=== PATIENT | female | born 1990 | race American Indian/Alaskan Native ===

== ENCOUNTER 2016-07-24 19:56 | Emergency (ER) | payer MEDICAID, OTHER ==
[2016-07-24 20:31] VITALS: BP 156/70
--- NOTE | 2016-07-24 20:38 | EDM.PDOC ---
ED HPI Skin/Rash - General Chief Complaint: Skin Complaint Stated Complaint: LEFT FOOT INFECTION [id number] Time Seen by Provider: 07/24/16 20:40 Source: Reports: Patient History Limitations: Reports: No limitations - History of Present Illness INITIAL COMMENTS - FREE TEXT/NARRATIVE: infected left great toe x 2 weeks, completed course of keflex without any change. Has not followed up in clinic. Notes possible Last LMP 06/11 Timing: Reports: still present Location, Skin: Reports: lower extremity, left Quality: Reports: Throbbing Severity: moderate Associated Symptoms: Reports: no other symptoms - Related Data Allergies Allergy/AdvReac Type Severity Reaction Status Date / Time No Known Allergies Allergy Verified 04/11/16 14:04 Home Meds: Ambulatory Orders Medication Instructions Recorded Confirmed . 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 Musculoskeletal History: Reports: None Neurological History: Reports: None Psychiatric History: Reports: None Endocrine/Metabolic History: Reports: None Hematologic History: Reports: None Immunologic History: Reports: None Oncologic (Cancer) History: Reports: None Dermatologic History: Reports: None - Infectious Disease History Infectious Disease History: Reports: Chicken pox - Past Surgical History Head Surgeries/Procedures: Reports: None Other Musculoskeletal Surgeries/Procedures:: Back surgeries x 3 Social & Family History - Family History Family Medical History: Noncontributory - Tobacco Use Smoking Status *Q: Never Smoker Second Hand Smoke Exposure: No - Caffeine Use Caffeine Use: Reports: None - Alcohol Use Days Per Week of Alcohol Use: 1 Number of Drinks Per Day: 1 Total Drinks Per Week: 1 - Recreational Drug Use Recreational Drug Use: No - Living Situation & Occupation Living situation: Reports: Occupation: employed ED ROS GENERAL - Review of Systems Review Of Systems: ROS reveals no pertinent complaints other than HPI. ED EXAM, SKIN/RASH Exam: See Below Exam Limited By: No limitations General Appearance: alert, no apparent distress Ears: normal external exam Throat/Mouth: Normal inspection Head: atraumatic Neck: normal inspection Respiratory/Chest: no respiratory distress Cardiovascular: normal peripheral pulses, regular rate, rhythm Extremities: increased warmth, redness, other (Left great toe ingrown toenail medial edge scant serous drainage, swelling redness, tender) Neurological: alert, oriented Skin: Warm, Other (left distal medial great toe swollen upper nail edge scant bloody drainage. ) Course - Vital Signs Last Recorded V/S: Last Vital Signs Temp 98.3 F 07/24/16 20:20 Pulse 89 07/24/16 20:20 Resp 14 07/24/16 20:20 BP 156/70 H 07/24/16 20:20 Pulse Ox 98 07/24/16 20:20 - Orders/Labs/Meds Meds: Medications Discontinued Medications Generic Name Dose Route Start Last Admin Trade Name Freq PRN Reason Stop Dose Admin Amoxicillin/Clavulanate Potassium 1 tab 07/24/16 20:40 07/24/16 20:52 Augmentin 875 Mg/125 Mg PO 07/24/16 20:41 1 tab ONETIME ONE Administration Amoxicillin/Clavulanate Potassium Confirm 07/24/16 21:08 Augmentin 875 Mg/125 Mg Administered 07/24/16 21:09 Dose 1 tab .ROUTE .STK-MED ONE Mupirocin Confirm 07/24/16 21:08 Bactroban Oint Administered 07/24/16 21:09 Dose 22 gm .ROUTE .STK-MED ONE Departure - Departure Time of Disposition: 20:47 Disposition: Home, Self-Care 01 Condition: good Clinical Impression: Paronychia of great toe, left Instructions: Ingrown Toenail Forms: ED Department Discharge Additional Instructions: augmentin 875 one twice daily for one week mupirocin ointment to toe three times daily keep area covered if draining broad toe shoe follow up in clinic on tuesday
[2016-07-24] MEDS ORDERED: Amoxicillin/Clavulanate K 875-125 MG Tab PO ONE ×2 (20:40→21:08)
[2016-07-24] MEDS ORDERED: Amoxicillin/Clavulanate K 875-125 MG Tab ONE (21:08)
[2016-07-24] MEDS ORDERED: Mupirocin Oint 22 GM Tube TOP ONE (21:08)
[2016-07-24] MEDS ORDERED: Mupirocin Oint 22 GM Tube ONE (21:08)
== END 2016-07-24 21:14 | disposition home or self-care (01) ==
LOC: DL.ED 19:56
DX: L03.032 Cellulitis of left toe (principal)
CPT/HCPCS: 99283; A9270

== ENCOUNTER 2016-10-08 22:03 | Emergency (ER) | payer MEDICAID, OTHER ==
[2016-10-09] MEDS ORDERED: Cyclobenzaprine 10 MG Tab PO ONE (03:40)
[2016-10-09] MEDS ORDERED: Acetaminophen/oxyCODONE 325-5 MG Tab PO ONE (03:40)
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
[2016-10-09 04:04] VITALS: BP 154/80
== END 2016-10-09 04:06 | disposition home or self-care (01) ==
LOC: DL.ED 22:03
DX: M62.838 Other muscle spasm (principal); V94.9XXA Unspecified water transport accident, initial encounter
CPT/HCPCS: 70450; 72125; 99284; A9270

== ENCOUNTER 2017-02-24 23:15 | Emergency (ER) | payer MEDICAID, OTHER ==
[2017-02-24 23:23] VITALS: BP 142/77
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
[2017-02-25] MEDS ORDERED: Ketorolac 30 MG/ML SDV IM ONE (00:11)
[2017-02-25] MEDS ORDERED: Acetaminophen/HYDROcodone 325-10 MG Tab PO ONE (01:01)
== END 2017-02-25 01:10 | disposition home or self-care (01) ==
LOC: DL.ED 23:15
DX: S30.0XXA Contusion of lower back and pelvis, initial encounter (principal); Z98.890 Other specified postprocedural states; X58.XXXA Exposure to other specified factors, initial encounter; W00.0XXA Fall on same level due to ice and snow, initial encounter
CPT/HCPCS: 36415; 72100; 84703; 96372; 99283; A9270; J1885

== ENCOUNTER 2017-11-22 21:42 | Emergency (ER) | payer MEDICAID, OTHER ==
[2017-11-23] MEDS ORDERED: Lidocaine 1% 30 ML SDV INJECT ONE (00:27)
[2017-11-23] MEDS ORDERED: Sulfamethoxazole/Trimethoprim 800-160 MG Tab PO ONE (00:27)
[2017-11-23] MEDS ORDERED: Bacitracin Oint 1 GM U/D Packet TOP ONE (00:39)
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
[2017-11-23 00:47] VITALS: BP 133/75
== END 2017-11-23 00:49 | disposition home or self-care (01) ==
LOC: DL.ED 21:42
DX: L02.415 Cutaneous abscess of right lower limb (principal)
CPT/HCPCS: 10060; 87070; 87077; 87186; 99283; A9270

== ENCOUNTER 2018-08-27 12:42 | Emergency (ER) | payer OTHER ==
[2018-08-27 13:56] VITALS: BP 120/67
--- NOTE | 2018-08-27 19:23 | EDM.PDOC ---
Scribed by Sue Mota 08/27/18 192 for Jess Lion NP ED HPI GENERAL MEDICAL PROBLEM - General Chief Complaint: Lower Extremity Injury/Pain Stated Complaint: INJURED LEFT HIP Time Seen by Provider: 08/27/18 13:30 Source of Information: Reports: Patient, RN, RN Notes Reviewed History Limitations: Reports: No Limitations - History of Present Illness INITIAL COMMENTS - FREE TEXT/NARRATIVE: Patient presented to ER with pain in the left hole and injured her left hip while mowing yesterday. She has taken Tylenol and ibuprofen. No LE numbness. No leg or ankle pain Onset Date: 08/26/18 Duration: Constant Location: Reports: Lower Extremity, Left Quality: Reports: Ache Severity: Mild Improves with: Reports: None Worsens with: Reports: None Associated Symptoms: Reports: No Other Symptoms Left Hip Pain Score (Numeric/FACES): 6 - Related Data Allergies Allergy/AdvReac Type Severity Reaction Status Date / Time No Known Allergies Allergy Verified 08/27/18 13:13 Home Meds: Home Meds Topiramate 25 mg PO ASDIRECTED PRN 08/27/18 [History] metFORMIN HCl [Metformin HCl] 500 mg PO BID 08/27/18 [History] Past Medical History - Past Health History Medical/Surgical History: Denies Medical/Surgical History HEENT History: Reports: None Cardiovascular History: Reports: None Respiratory History: Reports: None Gastrointestinal History: Reports: None Genitourinary History: Reports: None 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: Musculoskeletal History: Reports: None Neurological History: Reports: None Psychiatric History: Reports: None Endocrine/Metabolic History: Reports: None Hematologic History: Reports: None Immunologic History: Reports: None Oncologic (Cancer) History: Reports: None Dermatologic History: Reports: None - Infectious Disease History Infectious Disease History: Reports: Chicken Pox - Past Surgical History Female Surgical History: Reports: Section Other Musculoskeletal Surgeries/Procedures:: Back surgeries x 3 Social & Family History - Family History Family Medical History: Noncontributory - Caffeine Use Caffeine Use: Reports: None - Living Situation & Occupation Living situation: Reports: Occupation: Employed Review of Systems - Review of Systems Review Of Systems: ROS reveals no pertinent complaints other than HPI. ED EXAM, GENERAL - Physical Exam Exam: See Below Exam Limited By: No Limitations General Appearance: Alert, WD/WN, No Apparent Distress Neck: Normal Inspection, Supple, Non-Tender, Full Range of Motion Respiratory/Chest: No Respiratory Distress, Lungs Clear, Normal Breath Sounds, No Accessory Muscle Use, Chest Non-Tender Cardiovascular: Normal Peripheral Pulses, Regular Rate, Rhythm, No Edema, No Gallop, No JVD, No Murmur, No Rub GI/Abdominal: Normal Bowel Sounds, Soft, Non-Tender, No Organomegaly, No Distention, No Abnormal Bruit, No Mass Back Exam: Other (No spine pain.) Extremities: Other (left hip and groin pain. No red or edema. ) Skin Exam: Warm, Dry, Intact, Normal Color, No Rash Course - Vital Signs Last Recorded V/S: Last Vital Signs Temp 36.6 C 08/27/18 13:10 Pulse 72 08/27/18 13:10 Resp 16 08/27/18 13:10 BP 120/67 08/27/18 13:10 Pulse Ox 99 08/27/18 13:10 - Orders/Labs/Meds Orders: Active Orders 24 hr Category Date Time Status Hip Min 2V or 3V w Pelvis Lt [CR] Stat Exams 08/27/18 13:52 Taken - Radiology Interpretation Free Text/Narrative:: Left hip x-ray: No acute findings. See rad report. - Re-Assessments/Exams Free Text/Narrative Re-Assessment/Exam: 08/27/18 19:21 Patient left before xray report came available. Notified her at home of her neg xray and to follow with her PCP for possible PT. She was instructed to use heat/ ice ibuprofen/tylenol for pain Departure - Departure Time of Disposition: 17:09 Disposition: Home, Self-Care 01 Condition: Good Clinical Impression: Hip strain - Discharge Information *PRESCRIPTION DRUG MONITORING PROGRAM REVIEWED*: Not Applicable *COPY OF PRESCRIPTION DRUG MONITORING REPORT IN PATIENT MARIA G: Not Applicable Forms: ED Department Discharge Additional Instructions: Patient left before xray report came available. Notified her at home of her neg xray and to follow with her PCP for possible PT. She was instructed to use heat/ ice ibuprofen/tylenol for pain - My Orders Last 24 Hours: My Active Orders 08/27/18 13:52 Hip Min 2V or 3V w Pelvis Lt [CR] Stat - Assessment/Plan Last 24 Hours: My Active Orders 08/27/18 13:52 Hip Min 2V or 3V w Pelvis Lt [CR] Stat I have read and agree with the documentation that has been completed regarding this visit. By signing this record, I attest that the documentation was completed in my physical presence and is an accurate record of the encounter.
== END 2018-08-27 16:45 | disposition home or self-care (01) ==
LOC: DL.ED 12:42
DX: S76.012A Strain of muscle, fascia and tendon of left hip, initial encounter (principal); Z79.84 Long term (current) use of oral hypoglycemic drugs; W27.1XXA Contact with garden tool, initial encounter
CPT/HCPCS: 99283-25

== ENCOUNTER 2018-09-02 23:18 | Emergency (ER) | payer BC, OTHER ==
[2018-09-02] MEDS ORDERED: Doxycycline 100 MG Cap PO ONE (23:19)
[2018-09-02] MEDS ORDERED: Mupirocin Oint 22 GM Tube TOP ONE (23:19)
[2018-09-02 23:30] VITALS: BP 157/86
[2018-09-02] MEDS ORDERED: Doxycycline 100 MG Cap ONE (23:50)
[2018-09-02] MEDS ORDERED: Mupirocin Oint 22 GM Tube ONE (23:50)
--- NOTE | 2018-09-02 23:51 | EDM.PDOC ---
ED HPI GENERAL MEDICAL PROBLEM - General Chief Complaint: Lower Extremity Injury/Pain Stated Complaint: SCRAPE ON LEG INFECTED [id number] Time Seen by Provider: 09/02/18 23:42 Source of Information: Reports: Patient, RN History Limitations: Reports: No Limitations - History of Present Illness INITIAL COMMENTS - FREE TEXT/NARRATIVE: left outer leg red and swollen, >Slid into base Tuesday at softball. Crusting today and tonight noted redness around abrasion, Had been using peroxide to clean. No fever or chills. 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: Musculoskeletal History: Reports: None Other Musculoskeletal History: 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 Neurological History: Reports: None Psychiatric History: Reports: None Endocrine/Metabolic History: Reports: Diabetes, Type II Hematologic History: Reports: None Immunologic History: Reports: None Oncologic (Cancer) History: Reports: None Dermatologic History: Reports: None - Infectious Disease History Infectious Disease History: Reports: Chicken Pox - Past Surgical History Female Surgical History: Reports: Section Other Musculoskeletal Surgeries/Procedures:: Back surgeries x 3 Social & Family History - Family History Family Medical History: Noncontributory - Tobacco Use Smoking Status *Q: Never Smoker - Caffeine Use Caffeine Use: Reports: Tea - Recreational Drug Use Recreational Drug Use: No - Living Situation & Occupation Living situation: Reports: Occupation: Employed Review of Systems - Review of Systems Review Of Systems: ROS reveals no pertinent complaints other than HPI. ED EXAM, GENERAL - Physical Exam Exam: See Below Exam Limited By: No Limitations General Appearance: Alert, Mild Distress Eye Exam: Bilateral Eye: EOMI Ears: Normal External Exam, Normal TMs Nose: Normal Inspection Throat/Mouth: Normal Inspection, Normal Voice Head: Atraumatic Neck: Normal Inspection Respiratory/Chest: No Respiratory Distress, Lungs Clear, Normal Breath Sounds Cardiovascular: Normal Peripheral Pulses, Regular Rate, Rhythm GI/Abdominal: Normal Bowel Sounds, Soft Extremities: Increased Warmth, Redness ([id number] abrasion left lateral lower leg) Skin Exam: Warm, Dry, Erythema, Increased Warmth, Wound/Incision (abrasion left leg) Course - Vital Signs Last Recorded V/S: Last Vital Signs Temp 97.2 F 09/02/18 23:18 Pulse 87 09/02/18 23:18 Resp 18 09/02/18 23:18 BP 157/86 H 09/02/18 23:18 Pulse Ox 99 09/02/18 23:18 Departure - Departure Time of Disposition: 23:51 Disposition: Home, Self-Care 01 Condition: Good Clinical Impression: Cellulitis of lower extremity Qualifiers: Laterality: left Qualified Code(s): L03.116 - Cellulitis of left lower limb Abrasion, leg w/ infection Qualifiers: Encounter type: initial encounter Laterality: left Qualified Code(s): S80.812A - Abrasion, left lower leg, initial encounter; L08.9 - Local infection of the skin and subcutaneous tissue, unspecified - Discharge Information *PRESCRIPTION DRUG MONITORING PROGRAM REVIEWED*: No *COPY OF PRESCRIPTION DRUG MONITORING REPORT IN PATIENT MARIA G: No Instructions: Cellulitis, Adult, [id number] Additional Instructions: wash with soap and water dress with mupirocin twice daily elevate doxycycline 100mg one twice daily for 10 days follow up if increased redness and fever tylenol or ibuprofen, may alternate every 4 hours as needed for discomfort
== END 2018-09-03 00:05 | disposition home or self-care (01) ==
LOC: DL.ED 23:18
DX: S80.812A Abrasion, left lower leg, initial encounter (principal); L03.116 Cellulitis of left lower limb; E11.9 Type 2 diabetes mellitus without complications; Z79.84 Long term (current) use of oral hypoglycemic drugs; W19.XXXA Unspecified fall, initial encounter; Y93.64 Activity, baseball
CPT/HCPCS: 99283; A9270

== ENCOUNTER 2018-09-09 16:49 | Emergency (ER) | payer BC, OTHER ==
[2018-09-09 17:04] VITALS: BP 141/86
[2018-09-09] MEDS ORDERED: fentaNYL 100 MCG/2 ML SDV IVPUSH ONE (17:04)
[2018-09-09] MEDS ORDERED: Clindamycin Phosphate 900 MG in Sodium Chloride 0.9% 100 ML IV ONE (17:04)
[2018-09-09] MEDS ORDERED: Sodium Chloride 0.9% 1,000 ML IV ONE (17:04)
--- NOTE | 2018-09-09 17:08 | EDM.PDOC ---
ED HPI GENERAL MEDICAL PROBLEM - General Chief Complaint: Skin Complaint Stated Complaint: BLOOD CLOT IN LEFT LEG Time Seen by Provider: 09/09/18 17:06 Source of Information: Reports: Patient History Limitations: Reports: No Limitations - History of Present Illness INITIAL COMMENTS - FREE TEXT/NARRATIVE: injured left calf last week saw ER got doxy but started to look worse today with increase pain swelling redness. 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: Musculoskeletal History: Reports: None Other Musculoskeletal History: 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 Neurological History: Reports: None Psychiatric History: Reports: None Endocrine/Metabolic History: Reports: Diabetes, Type II Hematologic History: Reports: None Immunologic History: Reports: None Oncologic (Cancer) History: Reports: None Dermatologic History: Reports: None - Infectious Disease History Infectious Disease History: Reports: Chicken Pox - Past Surgical History Female Surgical History: Reports: Section Other Musculoskeletal Surgeries/Procedures:: Back surgeries x 3 Social & Family History - Family History Family Medical History: Noncontributory - Caffeine Use Caffeine Use: Reports: Tea - Living Situation & Occupation Living situation: Reports: Occupation: Employed ED ROS GENERAL - Review of Systems Review Of Systems: ROS reveals no pertinent complaints other than HPI. ED EXAM, SKIN/RASH Exam: See Below Exam Limited By: No Limitations General Appearance: Alert, WD/WN, Mild Distress, Other (discomfort) Ears: Hearing Grossly Normal Throat/Mouth: Normal Voice, No Airway Compromise Head: Atraumatic Neck: Non-Tender, Full Range of Motion Respiratory/Chest: No Respiratory Distress Cardiovascular: Regular Rate, Rhythm GI/Abdominal: Soft, Non-Tender Extremities: Other (left calf infected abrasion with cellulitis, no lymphangitis , NV wnl, gait limited to pain) Neurological: Alert, Oriented, Normal Cognition, No Motor/Sensory Deficits Psychiatric: Tearful Skin: Warm, Dry, Normal Color Location, Skin: Lower Extremity, Left Characteristics: Erythematous Associated features: Warmth, Tenderness, Swelling, Inflammation. No: Lymphangitis Lymphatic: No Adenopathy Course - Vital Signs Last Recorded V/S: Last Vital Signs Temp 37.2 C 09/09/18 17:01 Pulse 80 09/09/18 17:01 Resp 16 09/09/18 17:01 BP 141/86 H 09/09/18 17:01 Pulse Ox 99 09/09/18 17:01 - Orders/Labs/Meds Orders: Active Orders 24 hr Category Date Time Status CULTURE BLOOD [BC] Stat Lab 09/09/18 17:14 Received Sodium Chloride 0.9% [Normal Saline] 1,000 ml Med 09/09/18 17:04 Active IV .BOLUS Medication Orders Sodium Chloride (Normal Saline) 1,000 mls @ 999 mls/hr IV .BOLUS ONE Stop: 09/09/18 18:04 Last Admin: 09/09/18 17:23 Dose: 999 mls/hr Labs: Laboratory Tests 09/09/18 09/09/18 09/09/18 Range/Units 17:14 17:14 17:14 WBC 11.0 H (5.0-10.0) 10^3/uL RBC 4.55 (4.2-5.4) 10^6/uL Hgb 13.7 (12.0-16.0) g/dL Hct 40.8 (37.0-47.0) % MCV 89.7 (80-100) fL MCH 30.1 (27.0-34.0) pg MCHC 33.6 (33.0-35.0) g/dL Plt Count 394 D (150-450) 10^3/uL Neut % (Auto) 68.1 (42.2-75.2) % Lymph % (Auto) 24.3 (20.5-50.1) % [place] % (Auto) 6.5 (2-8) % Eos % (Auto) 0.7 L (1.0-3.0) % Baso % (Auto) 0.4 (0.0-1.0) % Sodium 139 (135-145) mmol/L Potassium 3.4 L (3.6-5.0) mmol/L Chloride 107 (101-111) mmol/L Carbon Dioxide 22.0 (21.0-31.0) mmol/L Anion Gap 13.4 BUN 12 (7-18) mg/dL Creatinine 0.7 (0.6-1.3) mg/dL Est Cr Clr Drug Dosing 111.01 mL/min Estimated GFR (MDRD) > 60 BUN/Creatinine Ratio 17.14 Glucose 112 H (74-105) mg/dL Lactic Acid 1.2 (0.5-2.2) mmol/L Calcium 8.9 (8.4-10.2) mg/dl Total Bilirubin 0.6 (0.2-1.0) mg/dL AST 31 (10-42) IU/L ALT 42 (10-60) IU/L Alkaline Phosphatase 86 (42-121) IU/L Total Protein 7.8 (6.7-8.2) g/dl Albumin 4.3 (3.2-5.5) g/dl Globulin 3.5 Albumin/Globulin Ratio 1.23 Meds: Medications Generic Name Dose Route Start Last Admin Trade Name Freq PRN Reason Stop Dose Admin Sodium Chloride 1,000 mls @ 999 mls/hr 09/09/18 17:04 09/09/18 17:23 Normal Saline IV 09/09/18 18:04 999 mls/hr .BOLUS ONE Administration Discontinued Medications Generic Name Dose Route Start Last Admin Trade Name Freq PRN Reason Stop Dose Admin Fentanyl 25 mcg 09/09/18 17:04 09/09/18 17:23 Sublimaze IVPUSH 09/09/18 17:05 25 mcg ONETIME ONE Administration Clindamycin Phosphate 900 mg/ 106 mls @ 200 mls/hr 09/09/18 17:04 09/09/18 17 :22 Sodium Chloride IV 09/09/18 17:35 200 mls/hr ONETIME ONE Administration - Re-Assessments/Exams Free Text/Narrative Re-Assessment/Exam: 09/09/18 17:56 results discussed with pt Departure - Departure Time of Disposition: 17:56 Disposition: Home, Self-Care 01 Condition: Good Clinical Impression: Wound infection, posttraumatic - Discharge Information Instructions: Cellulitis, Adult, [id number] Forms: ED Department Discharge Additional Instructions: 1) keep wound clean dry 2) elevate leg as much as possible 3) recheck as needed rx given; clindamycin 150mg qid x 40 vicodin 5/325mg bid prn x 6 - My Orders Last 24 Hours: My Active Orders 09/09/18 17:04 Sodium Chloride 0.9% [Normal Saline] 1,000 ml IV .BOLUS 09/09/18 17:14 CULTURE BLOOD [BC] Stat - Assessment/Plan Last 24 Hours: My Active Orders 09/09/18 17:04 Sodium Chloride 0.9% [Normal Saline] 1,000 ml IV .BOLUS 09/09/18 17:14 CULTURE BLOOD [BC] Stat
[2018-09-09 17:41] LABS: ANION GAP 13.4; CHLORIDE,CL 107 mmol/L (101-111); SODIUM,NA 139 mmol/L (135-145)
== END 2018-09-09 18:08 | disposition home or self-care (01) ==
LOC: DL.ED 16:49
DX: L03.116 Cellulitis of left lower limb (principal); E11.9 Type 2 diabetes mellitus without complications; Z79.84 Long term (current) use of oral hypoglycemic drugs
CPT/HCPCS: 36415; 80053; 83605; 85025; 87040; 96365; 96368; 96375; 99283; J3010; J3490; J7030; J7050

== ENCOUNTER 2020-05-24 21:19 | Emergency (ER) | payer BC, OTHER ==
[2020-05-24 21:38] VITALS: BP 132/74; PULSE 88
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
--- NOTE | 2020-05-24 22:29 | CR ---
PROCEDURE INFORMATION: Exam: XR Left Knee Exam date and time: 05/24/2020 10:09 PM Age: 29 years old Clinical indication: Other: Twisted; Additional info: Injury/pain TECHNIQUE: Imaging protocol: XR Left knee. Views: 3 views. COMPARISON: CR Knee 3V Lt 04/04/2014 9:43 AM FINDINGS: Bones/joints: The alignment of the joints is anatomic and the joint spaces are maintained. There is no evidence of acute fracture. There is no evidence of a joint effusion. Soft tissues: Unremarkable. IMPRESSION: Normal appearing knee.
== END 2020-05-24 22:42 | disposition home or self-care (01) ==
LOC: DL.ED 21:19
DX: S86.912A Strain of unspecified muscle(s) and tendon(s) at lower leg level, left leg, initial encounter (principal); E11.9 Type 2 diabetes mellitus without complications; Z86.16 Personal history of COVID-19; V00.221A Fall from sled, initial encounter; Y93.23 Activity, snow (alpine) (downhill) skiing, snowboarding, sledding, tobogganing and snow tubing
CPT/HCPCS: 73562-LT; 99282; 99283-25

== ENCOUNTER 2021-02-15 11:05 | Emergency (ER) | payer BC, OTHER ==
[2021-02-15 11:51] VITALS: BP 129/85; PULSE 77
[2021-02-15] MEDS ORDERED: Sodium Chloride 0.9% 1,000 ML IV ONE (12:05)
[2021-02-15] MEDS ORDERED: Ondansetron 4 MG/2 ML SDV IVPUSH ONE (12:06)
[2021-02-15] MEDS ORDERED: Metoclopramide 10 MG/2 ML SDV IVPUSH ONE (12:17)
[2021-02-15 12:51] LABS: ANION GAP 16.5 mEq/L (7-13); CHLORIDE,CL 104 mmol/L (98-107); SODIUM,NA 140 mmol/L (136-145)
== END 2021-02-15 13:31 | disposition home or self-care (01) ==
LOC: DL.ED 11:05
DX: K29.00 Acute gastritis without bleeding (principal); R11.2 Nausea with vomiting, unspecified; R19.7 Diarrhea, unspecified; E11.9 Type 2 diabetes mellitus without complications
CPT/HCPCS: 36415; 80053; 84703; 85025; 86140; 96374; 96375; 99284; J2405; J2765; J7030; 99283

== ENCOUNTER 2021-08-24 13:47 | Emergency (ER) | payer BC, OTHER | END 2021-08-24 13:48 | disposition left against medical advice (07) | LOC: DL.ED 13:47 | DX: Z53.21 Procedure and treatment not carried out due to patient leaving prior to being seen by health care provider (principal) ==

== ENCOUNTER 2023-05-22 15:48 | Emergency (ER) | payer BC, OTHER ==
[2023-05-22] MEDS: Sodium Chloride 0.9% 10 ML Syringe FLUSH PRN (17:31)
[2023-05-22 17:44] LABS: BASOPHILS PERCENT AUTO 0.6 % (0.0-1.0); EOSINOPHILS PERCENT AUTO 0.5 % (1.0-3.0); HEMOGLOBIN 13.1 g/dL (12.0-16.0); LYMPHOCYTES PERCENT AUTO 20.2 % (20.5-50.1); MEAN CORPUSCULAR HEMOGLOBIN 30.5 pg (27.0-34.0); MEAN CORPUSCULAR HGB CONC 33.6 g/dL (33.0-35.0); MEAN CORPUSCULAR VOLUME 90.7 fL (80-100); MONOCYTES PERCENT AUTO 10.4 % (2-8); NEUTROPHILS PERCENT AUTO 68.3 % (42.2-75.2); PLATELET COUNT,PLT 295 10^3/uL (150-450); WHITE BLOOD CELL COUNT,WBC 8.3 10^3/uL (5.0-10.0)
[2023-05-22] MEDS: Dexamethasone 4 MG/ML SDV IVPUSH ONE (18:05)
[2023-05-22 18:08] LABS: LACTIC ACID 0.7 mmol/L (0.4-2.0)
[2023-05-22 18:11] LABS: A/G RATIO 1.1; ALANINE AMINOTRANSFERASE,ALT 54 U/L (14-59); ALBUMIN 3.7 g/dL (3.4-5.0); ALKALINE PHOSPHATASE 112 U/L (46-116); ANION GAP 10.2 mEq/L (7-13); ASPARTATE AMNIOTRANSFERASE,AST 19 U/L (15-37); BILIRUBIN TOTAL 0.8 mg/dL (0.2-1.0); BLOOD UREA NITROGEN,BUN 9 mg/dL (7-18); BUN/CREATININE RATIO 11.8 (No establ ref range); C-REACTIVE PROTEIN 1.38 ng/dL (<=0.50); CARBON DIOXIDE,CO2 27 mmol/L (21-32); CHLORIDE,CL 102 mmol/L (98-107); CREATININE 0.76 mg/dL (0.55-1.02); GLUCOSE RANDOM 91 mg/dL (70-99); POTASSIUM,K 3.2 mmol/L (3.5-5.1); PROTEIN TOTAL,TP 7.2 g/dL (6.4-8.2); SODIUM,NA 136 mmol/L (136-145)
[2023-05-22 18:12] LABS: ESTIMATED GFR 106 mL/min (>=60)
[2023-05-22 18:18] LABS: INFLUENZA A NAA NEGATIVE (NEGATIVE); INFLUENZA B NAA NEGATIVE (NEGATIVE); RESPIRATORY SYNCYTIAL VIR NAA NEGATIVE (NEGATIVE)
[2023-05-22 18:19] LABS: CORONAVIRUS COVID-19 NAA POSITIVE (NEGATIVE)
[2023-05-22] MEDS: Potassium Chloride 10 MEQ Tab.ER PO ONE (18:26)
== END 2023-05-22 18:31 | disposition home or self-care (01) ==
LOC: DL.ED 15:48
DX: U07.1 COVID-19 (principal); E11.9 Type 2 diabetes mellitus without complications; Z88.8 Allergy status to other drugs, medicaments and biological substances; Z79.899 Other long term (current) drug therapy; Z86.16 Personal history of COVID-19
CPT/HCPCS: 0241U; 36415; 71045; 80053; 83605; 85025; 86140; 87040; 96374; 99284; 99285; A9270; J1100; J3490